=== PATIENT | male | born 1995 | race African-American/Black ===

== ENCOUNTER 2022-10-13 14:55 | Emergency (ER) | payer OTHER ==
[~2022-10-13] VITALS: Ht 182.9 cm; Wt 68.2 kg
[2022-10-13 15:15] VITALS: BP 118/66; PULSE 88; RESP 18; TEMP 98.2
[2022-10-13] MEDS ORDERED: PROPARACAINE HCL 0.5% 15 ML OPHTHALMIC SOLUTION OS ONE (17:30)
[2022-10-13] MEDS ORDERED: FLUORESCEIN SODIUM 1 MG STRIP OU ONE (17:30)
[2022-10-13] MEDS ORDERED: LIDOCAINE 5% TRANSDERMAL PATCH TD ONE (17:30)
[2022-10-13] MEDS ORDERED: ACETAMINOPHEN 500 MG TABLET PO ONE (17:30)
[2022-10-13] MEDS ORDERED: OFLOXACIN 0.3% 5 ML OPHTHALMIC SOLUTION OS ONE (18:30)
[2022-10-13] MEDS ORDERED: IBUP-1492 PO (18:33)
[2022-10-13] MEDS ORDERED: LIDO700A15 TP (18:33)
== END 2022-10-13 18:51 | disposition home or self-care (01) ==
LOC: EMS 15:23
DX: S20.212A Contusion of left front wall of thorax, initial encounter (principal); H11.153 Pinguecula, bilateral; Y04.8XXA Assault by other bodily force, initial encounter; Y93.89 Activity, other specified; Y92.89 Other specified places as the place of occurrence of the external cause; Y99.8 Other external cause status
CPT/HCPCS: 70486; 71046; 99284